=== PATIENT | female | born 2000 | race African-American/Black ===

== ENCOUNTER 2019-09-13 12:39 | Emergency (ER) | payer MEDICAID ==
[~2019-09-13] VITALS: Ht 165.1 cm; Wt 77.1 kg
[2019-09-13 12:59] VITALS: BP 111/70
[2019-09-13 13:17] LABS: Basophils # (auto) 0 uL; Eosinophils # (auto) 0.2 uL; Eosinophils % (auto) 1.8 % (0.0-7.0); Hemoglobin 9.3 g/dL (12.2-16.2); Monocytes # (auto) 0.8 uL; Neutrophils # (auto) 6.7 uL; Nucleated Red Blood Cells % 0.1 %
[2019-09-13 13:19] LABS: Basophils % (auto) 0.3 % (0.0-2.0); Hematocrit 28.3 % (36.0-46.0); Lymphocytes # (auto) 1.3 uL; Lymphocytes % (auto) 14.7 % (10.0-50.0); Mean Corpuscular Hemoglobin 25.9 pg (28.0-32.0); Mean Corpuscular Hgb Conc. 32.8 g/dL (32.0-36.0); Monocytes % (auto) 8.6 % (0.0-12.0); Neutrophils % (auto) 74.6 % (37.0-80.0); Platelet Count (auto) 205 10^3/uL (140-450); Red Blood Cells 3.58 10^6/uL (4.0-5.20); Red Cell Distribution Width 16.6 % (11.8-14.3)
[2019-09-13 13:47] LABS: Albumin 2.6 g/dL (3.4-5.0); Anion Gap 5 (5-15); Blood Urea Nitrogen 4 mg/dL (7-18); Calcium 8.5 mg/dL (8.5-10.1); Carbon Dioxide 24 mmol/L (21-32); Chloride 110 mmol/L (98-107); Glucose 82 mg/dL (74-106); Potassium 4.1 mmol/L (3.5-5.1); Sodium 139 mmol/L (136-145)
[2019-09-13 13:53] LABS: Urine Bacteria FEW /hpf (None Seen); Urine Blood Negative /uL (Negative); Urine Specific Gravity 1.003 (1.001-1.035); Urine WBC 1 /hpf (0 - 5)
[2019-09-13 13:53] LABS: Alanine Aminotransferase 14 U/L (13-56); Alkaline Phosphatase 98 U/L (45-117); Aspartate Aminotransferase 15 U/L (15-37); BUN/Creatinine Ratio 7.1; Bilirubin, Total 0.1 mg/dL (0.2-1.0); GFR African American 176 mL/min; GFR Non-African American 145 mL/min; Total Protein 7.4 g/dL (6.4-8.2)
== END 2019-09-13 14:59 | disposition home or self-care (01) ==
LOC: EDBD 12:39 → ER 12:47
DX: O26.893 Other specified pregnancy related conditions, third trimester (principal); R07.89 Other chest pain; Z3A.28 28 weeks gestation of pregnancy
CPT/HCPCS: 36415; 80053; 81001; 84484; 85025; 93005